=== PATIENT | female | born 1960 | race Caucasian/White ===

== ENCOUNTER → 2016-10-01 | Outpatient (CLI) | payer MEDICARE ==
[~2016-10-01] MED LIST: CIPRO PO; DIAZEPAM PO; ESTRACE PO; FLAGYL PO; GLUCOPHAGE XR500 MG PO; GLUCOVANCE 1.251 TAB PO; IBUPROFEN PO; LEVAQUIN PO; LYRICA PO; METFORMIN PO; PREDNISONE PO; PRILOSEC PO; ULTRAM PO; ZESTORETIC 20/11 TAB PO; ZITHROMAX PO
--- NOTE | ~2016-10-01 | CT16 ---
[facility] A Service of [facility] RADIOLOGY TEXT RESULTS PATIENT: NAOMIE HAQ [facility] 58 UNIT #: [id number] AGE: [address]: Alexandra Pacheco SEX: F ORDER DR: [id number] [facility] [address] [place], [place] [address] [id number] O MR#: [id number] Acc #: [id number] NAME: NAOMIE HAQ : 1960 SEX: F STUDY DATE/TIME: 10/01/2016 13:36 UNIT: [facility] ROOM: STUDY DESCRIPTION: CT Angio Chest for PE Attending Physician: Alexandra Pacheco A.P.R.N. Referring Physician: Alexandra Pacheco A.P.R.N. Ordering Physician: Alexandra Pacheco A.P.R.N. Primary Care Physician: Sunday Moyer M.D. MEDICAL IMAGING REPORT This report is preliminary unless electronic signature is present EXAM CT angiogram of the chest for pulmonary embolism, 10/01/2016 1336 hours HISTORY 55-year-old with shortness of air for 2 weeks, right lower extremity swelling and cough for 2 weeks. Limited IV access. COMPARISON CT abdomen 10/04/[address] images were obtained from the thoracic inlet through the adrenal glands. 3-D sagittal and coronal reconstructions were performed. Contrast was Isovue-370, 100 mL IV. Total exam DLP 697 mGy-cm. This CT exam was performed with one or more of the following radiation dose reduction techniques: Automatic exposure control, adjustment of mA and/or kV according to patient size, and iterative reconstruction. FINDINGS Images through the thoracic inlet demonstrate no thyroid lesion. Images through the chest demonstrate slightly suboptimal opacification of the pulmonary arteries due to the limited IV access and requirement of reduced IV injection rate. The central pulmonary arteries are normal. There is no central pulmonary embolism. The first through third order vessels are felt to be normal, but the peripheral vessels cannot be adequately assessed. The aorta is normal in caliber. There is no pericardial or pleural fluid. Lung window images suggest centrilobular emphysema in the upper lobes. There is no evidence of pneumonia, edema or suspicious nodule. [facility]. [facility] A Service of [facility] RADIOLOGY TEXT RESULTS PATIENT: NAOMIE HAQ LOCATION: [facility] : 58 UNIT #: [id number] AGE: [address]: Alexandra Pacheco SEX: F ORDER DR: Limited views through the upper abdomen demonstrate no focal liver lesion. The spleen and liver are slightly prominent in size. The adrenal glands are normal. IMPRESSION 1. There is no definite evidence of pulmonary embolism. The first through third order vessels appear normal. Patient had limited IV access and, therefore, the injection rate had to be reduced and the opacification of the very peripheral vessels is suboptimal and nondiagnostic. Small, peripheral emboli cannot be excluded but are not suspected. 2. No acute pulmonary findings. 3. Normal caliber aorta. 4. Limited views through the upper abdomen suggest mild prominence of the liver and spleen in size with no focal lesion. Dictated by... Roxy Mcgill M.D. THIS IS AN ELECTRONICALLY VERIFIED REPORT Roxy Mcgill M.D. at 10/02/2016 9:25 AM REHAN/gay TD: 10/01/2016 23:02 JOB #: [id number] MEDICAL IMAGING REPORT Page 1 of 1 COPY
[2016-10-01 20:21] LABS: POC - CREATININE 0.59 mg/dL (0.44-1.03); POC - GFR >60.0 mL/min (>60)
== END | disposition home or self-care (01) ==
LOC: CCAT 12:30
PROVIDERS: Nurse Practitioner Adult Health
DX: R06.02 Shortness of breath (principal); Z99.81 Dependence on supplemental oxygen
CPT/HCPCS: 71275; 82565; Q9967

== ENCOUNTER → 2016-10-04 | Outpatient (CLI) | payer MEDICARE ==
--- NOTE | ~2016-10-04 | US84 ---
[id number] [facility]. [facility] [address] [place], [place] [address] [id number] O MR#: [id number] Acc #: [id number] NAME: NAOMIE HAQ : 1960 SEX: F STUDY DATE/TIME: 10/04/2016 10:09 UNIT: [facility] ROOM: STUDY DESCRIPTION: US LE Veins Complete Jaspreet Stdy Attending Physician: Alexandra Pacheco A.P.R.N. Ordering Physician: Alexandra Pacheco A.P.R.N. Primary Care Physician: Sunday Moyer M.D. MEDICAL IMAGING REPORT This report is preliminary unless electronic signature is present EXAM Bilateral lower extremity venous duplex, 10/04/2016. HISTORY Bilateral lower extremity edema, right greater than left for 3 weeks with shortness of breath for 3 years. Recent flight. Evaluate for deep vein thrombosis. TECHNIQUE Venous ultrasound examination of both lower extremities was performed using grayscale, spectral Doppler and color flow Doppler imaging. FINDINGS The examination is negative. There is no evidence of deep venous thrombus from the groin to the lower calf bilaterally. Visualized greater saphenous veins are also patent. IMPRESSION Negative examination. No evidence of lower extremity deep venous thrombosis. Dictated by... Mookie Winston M.D. THIS IS AN ELECTRONICALLY VERIFIED REPORT Mookie Winston M.D. at 10/05/2016 10:18 AM GOOD/nan TD: 10/04/2016 12:26 JOB #: [id number] MEDICAL IMAGING REPORT Page 1 of 1 COPY
== END | disposition home or self-care (01) ==
LOC: CECH 09:46 → CNIV 09:46
DX: R06.02 Shortness of breath (principal); I51.7 Cardiomegaly; I50.30 Unspecified diastolic (congestive) heart failure; I36.1 Nonrheumatic tricuspid (valve) insufficiency; R06.00 Dyspnea, unspecified; Z99.81 Dependence on supplemental oxygen
CPT/HCPCS: 93306; 93970